=== PATIENT | male | born 1940 | race Caucasian/White ===

== ENCOUNTER 2016-10-17 14:52 | Inpatient (IN) | payer MEDICARE, OTHER ==
--- NOTE | ~2016-10-17 | CR63 ---
[facility] A Service of [facility] & [facility] RADIOLOGY TEXT RESULTS PATIENT: PAUL BAKER LOCATION: [place] [address] : 39 UNIT #: [id number] AGE: [address]: KIMO ISABEL MD SEX: M ORDER DR: [id number] [facility] [address] [place], [place] [address] [id number] I MR#: [id number] Acc #: [id number] NAME: PAUL BAKER. : 1940 SEX: M STUDY DATE/TIME: 10/18/2016 7:48 UNIT: [facility] ROOM: [facility] STUDY DESCRIPTION: CR Chest 2 View Attending Physician: Kimo Isabel M.D. Ordering Physician: Ed Doctor [id number] [facility] Primary Care Physician: Owen Simms MEDICAL IMAGING REPORT This report is preliminary unless electronic signature is present EXAM Chest x-ray 10/18/2016. HISTORY 76-year-old male in the ED complaining of 1-day history of shortness of air, mental status changes and weakness. Decreased blood pressure is noted. TECHNIQUE AP and lateral upright chest series. FINDINGS The exam shows no significant change since yesterday. Shallow lung expansion with mild bibasilar atelectasis. Mid and upper lungs are clear. No visible airspace consolidation or pleural effusion. Heart size is normal. IMPRESSION Stable portable chest radiograph, unchanged since yesterday. Dictated by... Hector Ramos M.D. THIS IS AN ELECTRONICALLY VERIFIED REPORT Hector Ramos M.D. at 10/18/2016 3:01 PM ARMAAN/monroe TD: 10/18/2016 11:30 JOB #: [id number] MEDICAL IMAGING REPORT COPY
--- NOTE | ~2016-10-17 | CT71 ---
[facility] A Service of [facility] RADIOLOGY TEXT RESULTS PATIENT: PAUL BAKER LOCATION: [facility] [address] : 39 UNIT #: [id number] AGE: [address]: KIMO FRYE MD SEX: M ORDER DR: [id number] [place] [id number] [facility] [place], [place] [address] [id number] E MR#: [id number] Acc #: [id number] NAME: PAUL BAKER. : 1940 SEX: M STUDY DATE/TIME: 10/17/2016 14:30 UNIT: [facility] ROOM: STUDY DESCRIPTION: CT Head Wo Contrast Attending Physician: Marina Stratton M.D. Ordering Physician: Marina Stratton M.D. Primary Care Physician: Owen Simms MEDICAL IMAGING REPORT This report is preliminary unless electronic signature is present EXAM Head CT without contrast. HISTORY Confusion for the past day. Previous history of stroke. COMPARISON 03/17/2015. TECHNIQUE Axial images were obtained without contrast. This CT exam was performed with one or more of the following radiation dose reduction techniques: automatic exposure control, adjustment of mA and/or kV according to patient size, and iterative reconstruction. FINDINGS Generalized atrophy is seen. There are moderate chronic ischemic changes noted around ventricles. There is no evidence of mass, hemorrhage or edema. No midline shift is seen. Extraaxial structures are unremarkable. No changes noted since the previous scan. IMPRESSION Atrophy with moderate chronic ischemic changes. No acute findings. Dictated by... Hasmukh Chan M.D. THIS IS AN ELECTRONICALLY VERIFIED REPORT Hasmukh Chan M.D. at 10/21/2016 4:31 PM RLF/gz TD: 10/17/2016 16:48 [facility] A Service of [facility] RADIOLOGY TEXT RESULTS PATIENT: PAUL BAKER LOCATION: [facility] [address] : 39 UNIT #: [id number] AGE: [address]: KIMO FRYE MD SEX: M ORDER DR: JOB #: [id number] MEDICAL IMAGING REPORT COPY
--- NOTE | ~2016-10-17 | HP ---
Unit #: [id number] #: [id number] Patient: PAUL BAKER [id number] [address] [address] [id number] I MR#: [id number] NAME: PAUL BAKER. ROOM: [address] Age: 76 Sex: M Admission Date: 10/17/2016 : 1940 Attending Physician: Fe Isabel M.D. Primary Care Physician: Owen Simms HISTORY AND PHYSICAL CHIEF COMPLAINT The altered mental status. HISTORY OF PRESENT ILLNESS The patient is a 76-year-old male resident of the [facility] with a vascular dementia, Alzheimer's, hypertension, history of a CVA, hyperlipidemia, coronary artery disease, brought to the emergency room concerning for altered mental status. The patient is unable to provide the history and the history is obtained by speaking to the patient's at the bedside. The patient has been more lethargic and unresponsive with slumping to the left side and patient was brought to the emergency room and was found to have a hypotension with a systolic in the 80s and a lactate of 3.1 and concerning for the pneumonia at the left base. The patient is more awake and alert and moves around on a wheelchair but the patient is unable to provide any history. PAST MEDICAL HISTORY History of prostate cancer, TIAs and vascular dementia, hyperlipidemia, diabetes. PAST SURGICAL HISTORY Colon resection for diverticulitis, hernia repair, appendectomy, tonsillectomy, prostatectomy, bilateral cataracts. SOCIAL HISTORY No history of alcohol, tobacco or any illicit drug abuse. FAMILY HISTORY Unable to obtain. HOME MEDICATIONS From the records he is on Protonix, Depakote, Norvasc, citalopram, furosemide, glimepiride, Januvia, lisinopril, acyclovir, risperidone, potassium, [place], dicyclomine, lorazepam. ALLERGIES No known drug allergies. REVIEW OF SYSTEMS Unable to obtain. PHYSICAL EXAMINATION GENERAL APPEARANCE: On examination the patient is lying on a bed not in Unit #: [id number] #: [id number] Patient: PAUL BAKER acute distress. VITAL SIGNS: Temperature 98.1, pulse 66, respiratory rate 16, blood pressure 88/54, sating 100% on 2 L of nasal cannula. HEENT: Head atraumatic, normocephalic. Pupils equal, round and reacting to light and accommodation. Extraocular movements are intact. Dry mucous membranes. NECK: Supple. No JVD. LUNGS: Decreased air entry at the bases. HEART: Regular rate and rhythm. ABDOMEN: Soft, positive bowel sounds. EXTREMITIES: No cyanosis. No clubbing. NEUROLOGIC: The patient is lethargic, does open the eyes and does not answer questions. PSYCHIATRIC: Unable to assess. DIAGNOSTIC STUDIES LABORATORY DATA: pH is 7.4, pCO2 36, pO2 109, bicarb 22.8, oxygen saturation 97%. Glucose 129, BUN 31, creatinine 1.9, sodium 139, potassium 4.1, chloride 106, bicarb 24, calcium 9, magnesium 1.9, total protein 6.1, AST 27, ALT 21, alkaline phosphatase 54, lactic acid is 3.1, INR is 1, WBC 10.5, hemoglobin 14.1, hematocrit 41, platelets 191, neutrophils 81.5. Flu screen is negative and UA is negative. IMAGING: CT of the head is negative for acute abnormality. Chest x-ray shows atelectasis versus questionable infiltrate at the left base versus effusion. ASSESSMENT 1. Altered mental status. 2. Sepsis. 3. Acute kidney injury 4. Probable pneumonia. PLAN 1. Plan to admit the patient to the inpatient with the telemetry. 2. Continue with the IV antibiotics with the cefepime and Zithromax. 3. Continue with the sepsis protocol and continue with the IV fluids, D5 half NS at 75 mL per hour. 4. Sliding scale low dose. 5. Repeat the chest x-ray, PA and lateral views for further characterization of the pneumonia. 6. Patient is a Do Not Resuscitate from the records. 7. Further recommendations will follow. Dictated by Georgie Ruiz TD: 10/17/2016 17:14 JOB #: [id number] Unit #: [id number] #: [id number] Patient: PAUL BAKER HISTORY AND PHYSICAL X X HISTORY AND PHYSICAL
--- NOTE | ~2016-10-17 | BMI ---
[facility] Nutrition Therapy DATE: 10/18/16 Patient: PAUL BAKER Physician: ASHLEY Address: [address] [place] [address] ROAD Room/Bed: [address] [place] [address], Zip: [place] [address] Admit Date: 10/17/16 Date of : 38 Height: 5 6 Weight: 234 106.3 HIGH BMI NOTE: DX: 76 Y.0. MALE ADMITTED FOR LOW B/P, AMS ANTHROPOMETRICS: 5'6", WT: 249# (113 KG), BMI: 40.2 DIET: HH INTERVENTION: 1. DIET RECOMMENDATIONS: 1. CONTINUE CURRENT DIET ORDER ABOVE TO PROMOTE GRADUAL WEIGHT LOSS TOWARDS HEALTHY BMI (19.0-25.0) OR +/-10%IBW RD WILL F/U PER PROTOCOL Respectfully, JOSE LUIS NUNN MS, RD, LD [employer] [facility] [employer] cc: client file
--- NOTE | ~2016-10-17 | CR72 ---
[facility] A Service of [facility] & [facility] RADIOLOGY TEXT RESULTS PATIENT: PAUL BAKER LOCATION: [facility] [address] : 39 UNIT #: [id number] AGE: [address]: KIMO FRYE MD SEX: M ORDER DR: [id number] [facility] [address] [place], [place] [address] [id number] E MR#: [id number] Acc #: [id number] NAME: PAUL BAKER : 1940 SEX: M STUDY DATE/TIME: 10/17/2016 UNIT: [facility] ROOM: STUDY DESCRIPTION: CR Chest Single View Portable Attending Physician: Marina Stratton M.D. Ordering Physician: Marina Stratton M.D. Primary Care Physician: Cortez Simms M.D. MEDICAL IMAGING REPORT This report is preliminary unless electronic signature is present EXAM Chest portable 10/17/2016 1348 hours. HISTORY 76-year-old with hypotension, altered mental status, shortness of air, and weakness today. History of diabetes and prior CVA. COMPARISON CT chest 03/24/2016. FINDINGS Portable upright chest demonstrates heart size within normal limits. The aortic contours are stable. Lungs demonstrate low lung volumes with linear atelectasis at the left base. There is no definite pneumonia, edema or effusion. IMPRESSION Low lung volume film with linear left retrocardiac density, most consistent with atelectasis. No definite pneumonia, edema or pleural effusions seen. Dictated by... Anna Agosto M.D. THIS IS AN ELECTRONICALLY VERIFIED REPORT Anna Agosto M.D. at 10/17/2016 8:41 PM BALBINA/jose enrique TD: 10/17/2016 16:32 JOB #: [id number] MEDICAL IMAGING REPORT [facility] A Service of [facility] & [facility] RADIOLOGY TEXT RESULTS PATIENT: PAUL BAKER LOCATION: [facility] : 39 UNIT #: [id number] AGE: [address]: KIMO FRYE MD SEX: M ORDER DR: COPY
--- NOTE | ~2016-10-17 | EKG ---
PATIENT: PAUL BAKER UNIT #: [id number] Ventricular Rate: 64 BPM Atrial Rate: 64 BPM P-R Interval: 168 ms QRS Duration: 86 ms Q-T Interval: 450 ms QTC Calculation(Bezet): 464 ms P [place]: 50 degrees Calculated R [place]: 33 degrees Calculated T [place]: 57 degrees Diagnosis Line: Normal sinus rhythm Diagnosis Line: Normal ECG Diagnosis Line: When compared with ECG of 17-MAR-2015 19:30, Diagnosis Line: No significant change was found Diagnosis Line: Confirmed by FATOUMATA CHADWICK MD ([id number]) on 10/17/2016 Diagnosis Line: 5:33:01 PM INTERPRETING MD: FARRUKH MILAN
--- NOTE | ~2016-10-17 | DS ---
Unit #: [id number] #: [id number] Patient: PAUL BAKER [id number] [address] [address] [id number] I MR#: [id number] NAME: PUAL BAKER ROOM: 552 Age: 76 Sex: M Admission Date: 10/17/2016 : 1940 Discharge Date: 10/18/2016 Attending Physician: Fe Isabel M.D. Primary Care Physician: Owen Simms DISCHARGE SUMMARY PRINCIPAL DIAGNOSES 1. Altered mental status secondary to hypotension. 2. Hypotension, likely medication induced. 3. Acute kidney injury on chronic kidney disease, stage 3 with baseline creatinine of approximately 1.5. Discharge creatinine is 1.5. 4. Vascular dementia with associated behavioral disturbance. 5. Coronary artery disease. 6. Hyperlipidemia. 7. Diabetes mellitus type 2, noninsulin requiring, controlled. 8. History of prostate cancer. 9. History of hypertension. 10. Gastroesophageal reflux disease. CONSULTANTS None. PROCEDURES 1. CT scan of the head without contrast on October 17, 2016, with atrophy and moderate chronic ischemic changes. No acute findings. 2. Chest x-ray on October 17, 2016, again, with findings of atelectasis. CLINICAL HISTORY AND HOSPITAL COURSE Mr. Baker is a 76-year-old male with a history of vascular dementia who resides in a long-term nursing facility. He was brought for altered mental status. The patient was found to be hypotensive in the emergency department. Please refer to H and P for further details. The patient was given normal saline and subsequently admitted. The patient's antihypertensive medications were initially held. Blood pressure today and has normalized to 107/70. He is also awake and speaking some which appears to be his baseline. I have discussed this with the patient's and we are going to adjust medications subtly and we will have to monitor blood pressure very closely. The patient also had a mild elevation in creatinine of approximately 1.7 up from a baseline of 1.5 and creatinine has normalized to his baseline. Again, this could be monitored as an outpatient. The patient otherwise appears to be his baseline. We are going to discontinue his antihypertensives and can monitor blood pressure at the nursing facility. DISCHARGE CONDITION Stable. Unit #: [id number] #: [id number] Patient: PAUL BAKER DISCHARGE STATUS Discharge to [facility] with long-term care. DISCHARGE MEDICATIONS 1. Depakote 500 mg in the morning and 750 mg at bedtime. 2. Celexa 20 mg daily. 3. Januvia 50 mg daily. 4. Lomotil 2.5 mg daily p.r.n. for diarrhea. 5. Bentyl 20 mg four times daily p.r.n. for abdominal cramping. 6. Risperdal 1 mg b.i.d. 7. Acyclovir 400 mg b.i.d. 8. Ativan 0.5 mg b.i.d. p.r.n. for anxiety. 9. Lasix 20 mg every other day for swelling. 10. Melatonin 3 mg at bedtime. 11. [place] 5/325 mg one to two tablets p.o. q.6 hours p.r.n. for pain. 12. Galantamine 16 mg daily. 13. Protonix 40 mg daily. 14. Potassium chloride 10 mEq p.o. every other day to be dosed with Lasix. 15. Amaryl 4 mg at breakfast. DISCHARGE INSTRUCTIONS 1. The patient is instructed to follow a Heart Healthy, constant carb diet. 2. He can increase Accu-Cheks as he was doing at home previously. 3. He can increase his activity as tolerated. FOLLOWUP The patient will follow up with medical laboratory scientist of [facility] next week. Recheck basic metabolic panel in one week. Again, have orthostatic blood pressures done at the nursing facility. As noted, I have discontinued Norvasc and lisinopril and can monitor blood pressure closely. Dictated by... Bernadette Vela M.D. TAO/ramila TD: 10/18/2016 11:02 JOB #: [id number] DISCHARGE SUMMARY X Bernadette Vela MD X DISCHARGE SUMMARY
[2016-10-17 13:50] LABS: ARTERIAL BLOOD GAS CARBOXY HB 0.6 %sat (0.0-9.0); ARTERIAL BLOOD GAS HCO3 22.8 mmol/L; ARTERIAL BLOOD GAS MET HB 1.2 %sat (0.0-2.0)
[2016-10-17 13:51] LABS: ARTERIAL BLOOD GAS ALLEN TEST Y; ARTERIAL BLOOD GAS ART SITE LEFT RADIAL; ARTERIAL BLOOD GAS DELIVERY NASAL CANNULA; ARTERIAL DRAW? YES
[2016-10-17 13:56] LABS: BASOPHIL% 0.4 % (0-2.5); EOSINOPHIL# 0.1 X10e3 (0-0.7); EOSINOPHIL% 1.4 % (0.0-7.0); HEMOGLOBIN 14.1 gm/dL (13.0-16.0); LYMPHOCYTE# 0.8 X10e3 (1.0-3.5); LYMPHOCYTE% 8.1 % (17.0-45.0); MEAN CELL VOLUME 94.5 FL (83-96); MEAN CORPUSCULAR HEMOGLOBIN 32.5 PG (28-34); MEAN CORPUSCULAR HGB CONC 34.4 g/dL (30-36); MEAN PLATELET VOLUME 8.2 FL (6.5-11.5); MONOCYTE# 0.9 X10e3 (0-1.0); MONOCYTE% 8.6 % (3.0-12.0); NEUTROPHIL# 8.6 X10e3 (1.5-7.1); NEUTROPHIL% 81.5 % (40-75); PLATELET COUNT 191 X10e3 (140-420); RED BLOOD COUNT 4.34 X10e (3.90-5.60); RED CELL DISTRIBUTION WIDTH 13.7 % (11.0-15.5); WHITE BLOOD COUNT 10.5 X10e3 (4.0-10.5)
[2016-10-17 14:00] LABS: POC - CKMB 6.5 ng/mL (0.0-7.9); POC - TROPONIN <0.05 ng/mL (<=0.05)
[2016-10-17 14:07] LABS: DIFF IND NO
[2016-10-17 14:09] LABS: PARTIAL THROMBOPLASTIN TIME 24.7 SECONDS (23.5-31.3); PROTHROMBIN TIME (PATIENT) 10.8 SECONDS (9.6-11.5)
[2016-10-17 14:18] LABS: URINE SOURCE CLEAN CATCH
[2016-10-17 14:22] LABS: URINE APPEARANCE CLEAR; URINE BILIRUBIN NEG (NEG); URINE BLOOD NEG (NEG); URINE COLOR YELLOW; URINE GLUCOSE NEG (NEG); URINE KETONE NEG (NEG); URINE LEUKOCYTE ESTERASE NEG (NEG); URINE NITRATE NEG (NEG); URINE PROTEIN NEG (NEG)
[2016-10-17 14:35] LABS: CULTURE INDICATED? NO
[2016-10-17 14:40] LABS: INFLUENZA A NEG (NEG); INFLUENZA B NEG (NEG)
[~2016-10-17 14:52] MED LIST: ACETAMINOPHEN PO; AMARYL2 MG PO; ASPIRIN81 MG PO; ATORVASTATIN CA10 MG PO; CARAFATE1 G PO; CELEXA PO; CELEXA20 MG PO; CITALOPRAM HBR40 MG PO; CLEOCIN PO; DESYREL50 MG PO; DITROPAN5 MG PO; FUROSEMIDE40 MG PO; GALANTAMINE HBR16 MG PO; GALANTAMINE4 MG PO; GLIMEPIRIDE2 MG PO; HEARTBURN RELIE75 MG PO; LASIX20 MG PO; LIPITOR PO; LOMOTIL TABLET1 TAB PO; LORTAB 7.5-5001 TAB PO; MELATONIN10 M1 PO; MELATONIN10 M2 PO; METFORMIN HCL500 M1 PO; MILK OF MAGNESIA PO; OMEPRAZOLE20 M1 PO; PERCOCET5/325 PO; POTASSIUM CHLO10 ME1 PO; PRILOSEC PO; PROTONIX PO; VICODIN 5/1 TAB 5/50 PO; ZANTAC; ZANTAC PO; ZESTRIL10 M2 PO
[2016-10-17 14:55] LABS: ALBUMIN SERUM 3.5 g/dL (3.5-5.0); BILIRUBIN, DIRECT 0.1 mg/dL (0.0-0.2); BILIRUBIN,INDIRECT 0.6 mg/dL (0.0-0.9); BILIRUBIN,TOTAL 0.7 mg/dL (0.2-2.0); BUN/CREATININE RATIO 19.47; CREATININE SERUM 1.9 mg/dL (0.6-1.4); GLOM FILT RATE Estimated 36.7 mL/min (>60); MAGNESIUM 1.9 mg/dL (1.6-3.0); POTASSIUM 4.1 mmol/L (3.5-5.1); PROTEIN TOTAL SERUM 6.1 g/dL (6.0-8.3)
[2016-10-17] MEDS ORDERED: PANTOPRAZOLE SO40 MG PO (16:39)
[2016-10-17] MEDS ORDERED: DEPAKOTE SPRIN125 MG PO (16:41)
[2016-10-17] MEDS ORDERED: AMLODIPINE BESYL5 MG PO (16:41)
[2016-10-17] MEDS ORDERED: CELEXA20 MG PO (16:41)
[2016-10-17] MEDS ORDERED: LASIX20 MG PO (16:41)
[2016-10-17] MEDS ORDERED: JANUVIA50 MG PO (16:42)
[2016-10-17] MEDS ORDERED: AMARYL PO (16:42)
[2016-10-17] MEDS ORDERED: GALANTAMINE HBR16 MG PO (16:42)
[2016-10-17] MEDS ORDERED: ZOVIRAX400 MG PO (16:43)
[2016-10-17] MEDS ORDERED: K-DUR10 MEQ PO (16:43)
[2016-10-17] MEDS ORDERED: LISINOPRIL10 MG PO (16:43)
[2016-10-17] MEDS ORDERED: RISPERIDONE1 MG PO (16:44)
[2016-10-17] MEDS ORDERED: DEPAKOTE SPRIN125 M1 PO (16:44)
[2016-10-17] MEDS ORDERED: HYDROCODON-ACE1 EAC7 PO (16:45)
[2016-10-17] MEDS ORDERED: BENTYL20 M1 PO (16:46)
[2016-10-17] MEDS ORDERED: LOMOTIL WHITE2.5 M1 PO (16:46)
[2016-10-17] MEDS ORDERED: HUMALOG100 U/M1 (16:47)
[2016-10-17] MEDS ORDERED: ATIVAN0.5 MG PO (16:47)
[2016-10-17 17:59] LABS: POC - CKMB 5.2 ng/mL (0.0-7.9); POC - TROPONIN <0.05 ng/mL (<=0.05)
[2016-10-18] MEDS ORDERED: MELATONIN3 M4 PO (00:27)
[2016-10-18 05:22] LABS: BASOPHIL% 0.4 % (0-2.5); DIFF IND NO; EOSINOPHIL# 0.4 X10e3 (0-0.7); EOSINOPHIL% 3.3 % (0.0-7.0); HEMATOCRIT 39.5 % (38.0-50.0); HEMOGLOBIN 13.4 gm/dL (13.0-16.0); LYMPHOCYTE# 1.2 X10e3 (1.0-3.5); LYMPHOCYTE% 11.5 % (17.0-45.0); MEAN CELL VOLUME 94.7 FL (83-96); MEAN CORPUSCULAR HEMOGLOBIN 32.1 PG (28-34); MEAN CORPUSCULAR HGB CONC 33.9 g/dL (30-36); MEAN PLATELET VOLUME 8.2 FL (6.5-11.5); MONOCYTE# 0.9 X10e3 (0-1.0); MONOCYTE% 8.8 % (3.0-12.0); NEUTROPHIL# 8.1 X10e3 (1.5-7.1); PLATELET COUNT 177 X10e3 (140-420); RED BLOOD COUNT 4.17 X10e (3.90-5.60); RED CELL DISTRIBUTION WIDTH 13.7 % (11.0-15.5); WHITE BLOOD COUNT 10.6 X10e3 (4.0-10.5)
[2016-10-18 05:47] LABS: BUN/CREATININE RATIO 18.66; CALCIUM SERUM 8.4 mg/dL (8.4-10.2); CREATININE SERUM 1.5 mg/dL (0.6-1.4); GLOM FILT RATE Estimated 48.2 mL/min (>60); POTASSIUM 3.7 mmol/L (3.5-5.1)
== END 2016-10-18 14:03 | DRG 312 ==
LOC: CED 14:52 → CEDOF 15:45 → C5B 18:40
PROVIDERS: Internal Medicine; Student in an Organized Health Care Education/Training Program
DX: I95.2 Hypotension due to drugs (principal); N17.9 Acute kidney failure, unspecified; F01.51 Vascular dementia, unspecified severity, with behavioral disturbance; E86.0 Dehydration; E11.9 Type 2 diabetes mellitus without complications; I10 Essential (primary) hypertension; E78.5 Hyperlipidemia, unspecified; Z90.49 Acquired absence of other specified parts of digestive tract; Z90.79 Acquired absence of other genital organ(s); Z79.84 Long term (current) use of oral hypoglycemic drugs
CPT/HCPCS: 36600; 51702; 70450; 71010; 71020; 80048; 80076; 81003; 82553; 82803; 82947; 83605; 83735; 84484; 85025; 85610; 85730; 87040; 87804; 93005; 96360; 99291; J0456; J0692; J2543; J3260; J3370